=== PATIENT | female | born 1980 | race Caucasian/White ===

== ENCOUNTER 2022-04-30 12:43 | Outpatient (CLI) | payer OTHER, SELFPAY ==
--- NOTE | ~2022-04-30 | MR_ITS ---
EXAMINATION: MR knee RT wo con DATE: 04/30/2022 13:24 INDICATION: Acute onset right knee pain TECHNIQUE: Magnetic resonance imaging (MRI) of the right knee was performed without intravenous contr ast. Sequences included coronal PD-weighted FSE, coronal PD-weighted FS FSE, sagittal T2-weighted FS E, sagittal PD-weighted FS FSE and axial PD weighted fat saturated FSE. COMPARISON: None. FINDINGS: Medial compartment: Medial meniscus is normal. Chondral ulceration involving less than 50% the cartilage thickness at the anterior weightbearing medial femoral condyle and greater than 50% the cartilage thickness with mild underlying subarticular edema-like signal change at the central weightbearing medial femoral condyle . Lateral compartment: Lateral meniscus is normal. Heterogeneous cartilage signal suggesting partial thickness fissuring at the central aspect of the lateral tibial plateau. Cartilage along the weightbearing lateral femoral c ondyle is normal. Patellofemoral compartment: Deep chondral ulceration without degenerative subchondral changes at the central aspect of the latera l patellar facet and additional deep chondral ulceration with underlying cortical irregularity and mi nimal underlying edema-like signal change involving significant portion of the lateral trochlea. Ligaments and tendons: Anterior and posterior cruciate ligaments are normal. The medial collateral ligament and fibular nirmal ateral ligament complex are normal. The extensor mechanism is normal. The visualized medial and later al hamstring tendons as well as the iliotibial band are normal. Fluid: Small right knee joint effusion. No loose osteochondral bodies identified. Osseous/other: Bone alignment is normal. No fracture or pathologic marrow replacing process. There is a medial plica l band which extends across the medial rim of the medial trochlea. IMPRESSION: 1. 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 2. Normal menisci and stabilizing ligaments. 3. Small right knee joint effusion with medial plical band. Reviewed, dictated and finalized at location A. [facility] [employer] IMPRESSION: 1. Mild osteoarthritis with moderate and high-grade chondral malacia in the med ial compartment and mild to moderate osteoarthritis with additional moderate an d high-grade chondromalacia at the patellofemoral compartment. 2. Normal menisci and stabilizing ligaments. 3. Small right knee joint effusion with medial plical band.
== END 2022-04-30 12:44 ==
PROVIDERS: Visit Provider Orthopaedic Surgery
DX: M17.11 Unilateral primary osteoarthritis, right knee (principal); M22.41 Chondromalacia patellae, right knee; M25.461 Effusion, right knee; M67.51 Plica syndrome, right knee
CPT/HCPCS: 73721